=== PATIENT | female | born 1945 | race Caucasian/White ===

== ENCOUNTER → 2016-09-17 | Outpatient (CLI) | payer MEDICARE, OTHER ==
[~2016-09-17] MED LIST: CHOL10007 PO; CRESTOR10 MG PO; CYAN10008 PO; IRON1TAB2 PO; METF500T9 PO; OMEP40CA5 PO; SUCR1TAB PO
--- NOTE | 2016-09-17 14:11 | RAD ---
DATE: September 17, 2016 EXAM: MAMMO SUKH SCREENING BILATERAL HISTORY: Routine screening. COMPARISON: April 07, 2012. TECHNIQUE: 2D digital CC and MLO views were obtained. 3D tomosynthesis imaging was performed in the CC and MLO projections. This study was interpreted with the benefit of Computerized Aided Detection (CAD). FINDINGS: The breast parenchyma demonstrates scattered fibroglandular densities, category B. Benign appearing masses in the right breast are stable to decreased in size, most likely cysts. No enlarging mass or spiculated mass is apparent. There are benign calcifications scattered throughout both breasts. IMPRESSION: Benign findings. BI-RADS CATEGORY: 2 BENIGN FINDING RECOMMENDED FOLLOW-UP: 12M 12 MONTH FOLLOW-UP PQRS compliance statement: Patient information was entered into a reminder system with a target due date of September 17, 2017 for the next mammogram. Mammography is a sensitive method for finding small breast cancers, but it does not detect them all and is not a substitute for careful clinical examination. A negative mammogram does not negate a clinically suspicious finding and should not result in delay in biopsying a clinically suspicious abnormality. "Our facility is accredited by the [employer] Mammography [employer]."
== END | disposition home or self-care (01) ==
LOC: MAMMO 10:42
PROVIDERS: ATTEND Family Medicine
DX: Z12.31 Encounter for screening mammogram for malignant neoplasm of breast (principal)
CPT/HCPCS: 77063; G0202; 77067

== ENCOUNTER → 2019-07-15 | Outpatient (CLI) | payer MEDICARE, OTHER ==
[~2019-07-15] MED LIST changes: +CHOL100014 PO; -CHOL10007 PO; +CYAN100070 PO; -CYAN10008 PO; +METF500T11 PO; -METF500T9 PO; +OMEP40CA45 PO; -OMEP40CA5 PO
--- NOTE | 2019-07-15 11:40 | RAD ---
DATE: 07/15/2019 EXAM: MAMMO SUKH SCREENING BILATERAL HISTORY: Routine screening COMPARISON: 09/15/2016 and 04/07/2012 mammographic exams This study was interpreted with the benefit of Computerized Aided Detection (CAD). Breast Density: HETERO The breast parenchyma is heterogenously dense, which could reduce sensitivity of mammography. Breast parenchyma level C. FINDINGS: No suspicious calcifications or distortion. Mass lesion is present 3.5 cm from the nipple. It is well-circumscribed appearance. It is not seen on 09/15/2016. Additional small masses are present involving the right and left breast are stable. No distortion. Benign-appearing calcifications noted. IMPRESSION: Indeterminate left breast mass. BI-RADS CATEGORY: 0 INCOMPLETE: NEEDS ADDITIONAL IMAGING EVALUATION AND/OR PRIOR MAMMOGRAMS FOR COMPARISON. RECOMMENDED FOLLOW-UP: ADD ADDITIONAL IMAGING. Ultrasound imaging of the central left retroareolar region anteriorly is recommended for further evaluation. PQRS compliance statement: Patient information was entered into a reminder system with a target due date for the next mammogram. Mammography is a sensitive method for finding small breast cancers, but it does not detect them all and is not a substitute for careful clinical examination. A negative mammogram does not negate a clinically suspicious finding and should not result in delay in biopsying a clinically suspicious abnormality. "Our facility is accredited by the [employer] Mammography [employer]."
== END | disposition home or self-care (01) ==
LOC: MAMMO 09:22
PROVIDERS: ATTEND Family Medicine
DX: Z12.31 Encounter for screening mammogram for malignant neoplasm of breast (principal); N63.20 Unspecified lump in the left breast, unspecified quadrant; N64.89 Other specified disorders of breast
CPT/HCPCS: 77063; 77067

== ENCOUNTER → 2019-07-27 | Outpatient (CLI) | payer MEDICARE, OTHER ==
--- NOTE | 2019-07-27 15:42 | RAD ---
Examination: BREAST LEFT History: Abnormal mammogram Comparison/Correlation: 07/15/2019 ultrasound exam Findings: Ultrasound imaging of the left upper outer breast was performed. At the 1:30 region 3 cm from the nipple, a cystic structure is present with no flow within it. Internal echoes noted. This structure measures 0.74 cm x 0.38 cm tall x 0.53 cm. Impression: BI-RADS Category 3-probably benign. Complicated cyst appears to be present. 6 month follow-up mammogram is recommended to assess stability. Ultrasound may be needed. Electronically signed by: Brayan Khalil MD (07/27/2019 3:39 PM) [facility]
== END | disposition home or self-care (01) ==
LOC: US 12:54
PROVIDERS: ATTEND Family Medicine
DX: R92.8 Other abnormal and inconclusive findings on diagnostic imaging of breast (principal)
CPT/HCPCS: 76641